=== PATIENT | female | born 1970 | race Caucasian/White ===

== ENCOUNTER → 2016-10-23 | Outpatient (CLI) | payer BC ==
[~2016-10-23] MED LIST: ESCI10TA17 PO
== END | disposition home or self-care (01) ==
LOC: C.PAPS 09:31
PROVIDERS: ATTEND Physician Assistant
DX: Z01.419 Encounter for gynecological examination (general) (routine) without abnormal findings (principal)

== ENCOUNTER → 2017-04-06 | Outpatient (CLI) | payer BC ==
--- NOTE | 2017-04-06 08:56 | DIAGNOSTIC IMAGING REPORT ---
R KNEE 4 OR MORE HISTORY: 46 years-old Female RIGHT KNEE PAIN acute right knee pain without reported trauma COMPARISON: None available TECHNIQUE: 4 views of the right knee FINDINGS: There is no acute fracture, dislocation or significant degenerative changes. Small joint effusion is suspected. There is mild marginal spurring of the patella. No opaque foreign body. IMPRESSION: 1. No acute fracture or dislocation. 2. Mild marginal spurring of the patella with small joint effusion. The above report was generated using voice recognition software. It may contain grammatical, syntax or spelling errors. Electronically signed by: Navi Sewell M.D. 04/06/2017 8:54 AM Dictated Date/Time: 04/06/2017 8:54 AM
== END | disposition home or self-care (01) ==
LOC: C.RDSM 12:06
PROVIDERS: ATTEND Internal Medicine
DX: M25.561 Pain in right knee (principal); M25.761 Osteophyte, right knee; M25.461 Effusion, right knee